=== PATIENT | female | born 1955 | race Caucasian/White ===

== ENCOUNTER → 2021-06-04 10:44 | Outpatient (CLI) | payer MEDICARE, MEDICAID, SELFPAY ==
--- NOTE | ~2021-06-04 | XR_ITS ---
XR knee LT 2V DATE: 06/04/2021 11:16 INDICATION: Medial left knee pain for several months. TECHNIQUE: AP and lateral views COMPARISON: None FINDINGS: No fracture or dislocation or joint effusion. No periosteal reaction or bone destruction. S light periarticular spurring of the patella. Joint spaces are relatively preserved. No radiopaque int ra-articular loose body or chondrocalcinosis. IMPRESSION: Mild patellofemoral osteoarthritis Reviewed, dictated and finalized at location B.
--- NOTE | ~2021-06-04 | XR_ITS ---
XR lumbar spine 2-3V DATE: 06/04/2021 11:16 INDICATION: Right sciatica TECHNIQUE: AP, lateral, coned lateral lumbosacral views COMPARISON: December 18, 2018 lumbar spine FINDINGS: Approximately 12 mm faceted calcified gallstones overlying the right upper quadrant of the abdomen. Diffuse osteopenia. Mild degenerative disc disease at L1-2. Moderate degenerative disc disease at L3-4. There is severe degenerative disc disease at L4-5 and moderately severe degenerative disease at L5-S1 . There is degenerative change at the apophyseal joints with associated minimal grade 1 anterolisthesis at L4-5. No fracture or bone destruction is evident. The lumbar pedicles are intact. The sacroiliac joints are intact. Osteitis pubis. Osteoarthritis at both hip joints, right greater than left. IMPRESSION: Multilevel degenerative disc disease, most pronounced at L4-5 Grade 1 anterolisthesis at L4-5 Bilateral hip osteoarthritis Osteitis pubis Cholelithiasis Reviewed, dictated and finalized at location B.
== END ==
PROVIDERS: PCP Physician Assistant; Visit Provider Physician Assistant
DX: M54.41 Lumbago with sciatica, right side (principal); M54.42 Lumbago with sciatica, left side; K80.20 Calculus of gallbladder without cholecystitis without obstruction; M16.0 Bilateral primary osteoarthritis of hip; M51.36 Other intervertebral disc degeneration, lumbar region
CPT/HCPCS: 72100; 73560

== ENCOUNTER → 2023-01-18 12:59 | Outpatient (CLI) | payer MEDICARE, MEDICAID, SELFPAY ==
--- NOTE | ~2023-01-18 | XR_ITS ---
Left ankle Technique: AP, oblique, and lateral views were obtained. Clinical History: Swelling Findings: No acute fracture or dislocation is seen. Osseous alignment is anatomic. Ankle mortise and other visualized joint spaces are preserved. Soft tissues are otherwise unremarkable. Impression: Unremarkable left ankle. Reviewed, dictated and finalized at location . Impression: Unremarkable left ankle.
--- NOTE | ~2023-01-18 | US_ITS ---
EXAMINATION: US soft tissue groin RT DATE: 01/18/2023 13:44 INDICATION: Right inguinal hernia TECHNIQUE: Multiple grayscale and Doppler ultrasound images of the region of concern at the right jasmeet in were obtained. COMPARISON: None FINDINGS: Short segment of peristalsing bowel is seen extending into a right inguinal hernia. The hernia sac me asures approximately 4.6 x 2.8 x 1.5 cm. The orifice of the hernia measures approximately 2.1 x 2.0 c m. IMPRESSION: 1. Small right inguinal hernia containing short segment of peristalsing bowel. Reviewed, dictated and finalized at location A.
--- NOTE | ~2023-01-18 | XR_ITS ---
Right Shoulder Technique: AP and scapular Y views were obtained. Clinical History: Pain Findings: No fracture or dislocation is seen. Osseous alignment is anatomic. Small inferomedial humer al head osteophyte present. There is mild degenerative change of the AC joint. Numerous intra-articul ar loose bodies are present in the glenohumeral joint, largest measuring 1 cm in diameter. Impression: Numerous intra-articular loose bodies at the right glenohumeral joint, consistent with synovial osteo chondromatosis. Minimal degenerative change of the before meals and glenohumeral joints. Reviewed, dictated and finalized at location . Impression: Numerous intra-articular loose bodies at the right glenohumeral joint, consiste nt with synovial osteochondromatosis. Minimal degenerative change of the before meals and glenohumeral joints.
== END ==
PROVIDERS: PCP Nurse Practitioner Family; Visit Provider Nurse Practitioner Family
DX: M25.511 Pain in right shoulder (principal); M79.89 Other specified soft tissue disorders; K40.90 Unilateral inguinal hernia, without obstruction or gangrene, not specified as recurrent
CPT/HCPCS: 73030; 73610; 76882

== ENCOUNTER 2023-06-14 13:24 | Outpatient (CLI) | payer MEDICARE, MEDICAID, SELFPAY ==
--- NOTE | ~2023-06-14 | PE_ITS ---
EXAMINATION: PET skull to mid thigh DATE: 06/14/2023 15:40 INDICATION: Nonspecific abnormal finding of lung field TECHNIQUE: Blood glucose level was 112 mg/dL. 10.394 mCi of 18-fluorodeoxyglucose (18-FDG) was admini stered i.v. Low dose computed tomography (CT) images were acquired from the base of the brain to the proximal thighs for attenuation correction and anatomic localization. Positron emission tomography (P ET) images were acquired in the same distribution beginning 62 minutes after injection. Images includ ing fused PET/CT images were reconstructed in axial, coronal, and sagittal planes. Automated exposure control technique was employed. The dose-length product was 546.16mGy-cm. COMPARISON: None FINDINGS: Head/neck: There is symmetric increased activity in the oral cavity, palatine tonsils, lingual tonsils, laryngea l muscles and ocular muscles without CT correlate, likely physiologic. No pathologically enlarged cer vical lymphadenopathy or suspicious foci of increased FDG uptake in the visualized head or neck. Chest: Enlarged and prominently FDG avid mediastinal lymphadenopathy. This includes a 3.5 x 3.5 cm mass at t he AP window with maximal SUV of 15.7 and a couple smaller prevascular lymph nodes including a 10 mm lymph node situated between the origins of the left subclavian and left common carotid arteries with maximal SUV of 12.4. Mild discoid atelectasis at the right lung base. No suspicious pulmonary nodules or abnormally FDG avid pulmonary lesions. No pleural effusion. Mild cardiomegaly. No pericardial eff usion. Small sliding-type hiatal hernia. Abdomen/pelvis/proximal thighs: Physiologic renal accumulation and excretion of FDG activity in the kidneys, bladder and along portio ns of ureters. Normal degree and heterogenous pattern of increased uptake throughout the liver withou t radiologic correlate or dominant FDG avid lesion. Calcified gallstone in the otherwise normal-appea ring gallbladder. The gallbladder, pancreas, spleen and bilateral adrenal glands are normal. Mild upt ronald scattered throughout the bowels without radiologic correlate, also likely physiologic. Nonobstruc dale loop of small bowel extends into a right-sided spigelian hernia. Uterus and adnexa are unremarkab le. 9 x 6 mm FDG avid soft tissue density nodule in the subcutaneous fat 4 similar caudal to the umbi licus with maximal SUV of 5.4. No other abnormal foci of increased FDG uptake or pathologically enlar ged lymphadenopathy in the abdomen, pelvis or proximal thighs. Musculoskeletal: Partially visualized left frontal craniectomy. Severe lower cervical spondylosis. Mild synovial uptak e associated with the right sternoclavicular joint where there is moderate osteoarthritis. Additional synovial uptake at multiple loose osteochondral bodies at the recess of the bilateral glenohumeral j oints. No suspicious lytic, blastic or FDG avid bone lesions. IMPRESSION: 1. Enlarged and FDG avid mediastinal lymph nodes concerning for either lymphoma or metastatic disease although no other primary malignancy is identified. 2. Indeterminate infraumbilical 9 x 6 mm subcutaneous soft tissue nodule with mild associated FDG upt ronald also raising some suspicion for either lymphoma or metastatic lymph node. Although small this les ion would be amenable for percutaneous ultrasound-guided biopsy. 3. Segment of nonobstructed small bowel extending into a right anterior pelvic spigelian hernia. 4. Cholelithiasis. Reviewed, dictated and finalized at location A. IMPRESSION: 1. Enlarged and FDG avid mediastinal lymph nodes concerning for either lymphoma or metastatic disease although no other primary malignancy is identified. 2. Indeterminate infraumbilical 9 x 6 mm subcutaneous soft tissue nodule with m ild associated FDG
[2023-06-14 13:59] LABS: Glucose Point of Care 112 mg/dl (65-105)
== END 2023-06-14 13:25 | disposition home or self-care (01) ==
LOC: ANHIMG 13:28
PROVIDERS: PCP Nurse Practitioner Family; Visit Provider Nurse Practitioner Family
DX: R91.8 Other nonspecific abnormal finding of lung field (principal); K80.20 Calculus of gallbladder without cholecystitis without obstruction
CPT/HCPCS: 78815; A9552

== ENCOUNTER 2024-03-02 14:41 | HOS | payer OTHER, MEDICARE, MEDICAID, SELFPAY ==
[2024-03-02 14:51] VITALS: BP 148/85; PULSE 92; RESP 12; TEMP 37.1; O2SAT 96
[2024-03-02 15:13] VITALS: PULSE 84; RESP 16
[2024-03-02] MEDS: MORPHINE SULFATE INJ (*CRX) 50 MG in SODIUM CHLORIDE 0.9% IV 95 ML IV CONT (15:13)
[2024-03-02 16:01] VITALS: BMI 12.3
[2024-03-02] MEDS: PHENobarbitaL sodium (*CRX) 130 MG/ML VIAL 60 MG IV PUSH ×2 (16:24→21:56)
[2024-03-02] MEDS: LORazepam INJ (*CRX) 2 MG/ML VIAL 1 MG IV PUSH ×2 (19:14→22:37)
[2024-03-02] MEDS: PROCHLORPERAZINE EDISYLATE 10 MG/2 ML VIAL IV PUSH (19:21)
[2024-03-02 20:00] VITALS: BP 138/76; PULSE 94; RESP 13; TEMP 36.7; O2SAT 95
[2024-03-02] MEDS: MORPHINE SULFATE (*CRX) 4 MG/ML INJ IV PUSH (22:07)
--- NOTE | 2024-03-02 22:19 | PC.NURSE ---
Patient noted to be moaning and extremely restless. PRN's not effective at this time. Spoke with Dr. Velasquez at this time. New order received to increase morphine drip to 3mg/hr and start Ativan IVP 1mg Q8H scheduled and cont with PRN doses as needed.
[2024-03-02 22:37] VITALS: PULSE 74; RESP 18
[2024-03-02] MEDS: MORPHINE SULFATE INJ (*CRX) 50 MG in SODIUM CHLORIDE 0.9% IV 95 ML 6 MG IV CONT (22:37)
[2024-03-03] MEDS: LORazepam INJ (*CRX) 2 MG/ML VIAL 1 MG IV PUSH ×3 (05:03→21:04)
[2024-03-03] MEDS: PHENobarbitaL sodium (*CRX) 130 MG/ML VIAL 60 MG IV PUSH ×4 (05:03→21:04)
--- NOTE | 2024-03-03 07:31 | PM.IMHP ---
H&P: HPI History of Present Illness Date/Time: 03/03/24 07:31 Chief Complaint: Uncontrolled restlessness Narrative: 68-year-old female on service for lung cancer for which she exhausted all treatment options and wished no further therapy was experiencing escalating vertigo and nausea vomiting during the past week. This improved however she became very restless. She was having discomfort restlessness sleeplessness. Her primary caregiver, daughter, was exhausted and unable to continue giving care at home. Oral and rectal medications including rectal Compazine and oral Ativan, morphine, dexamethasone, and Haldol had failed to control her symptoms. She was admitted for control of symptoms related to terminal restlessness. Review of Systems Review of Systems: ROS unobtainable: Yes unobtainable due to medical condition PMFSH Past Medical History Medical History (Updated 03/03/24 @ 07:34 by Pritesh Velasquez MD) Lung cancer Vertigo Family History Family History (Updated 03/03/24 @ 07:33 by Pritesh Velasquez MD) Father No problems noted. Mother No problems noted. Social History Social History (Updated 03/03/24 @ 07:33 by Pritesh Velasquez MD) Social History: Retired. Lives with Daughter. DNR. Smoking status: Former smoker Smoking end date: 10/31/08 Alcohol intake: former Substance use: never Spiritual care concerns: No Meds Home Medications and Allergies Home Medications Medication Instructions Recorded Confirmed Type No Home Medications 03/02/24 03/02/24 History Allergies Allergy/AdvReac Type Severity Reaction Status Date / Time codeine Allergy Unknown Unknown Verified 03/02/24 18:05 Penicillins Allergy Unknown Unknown Verified 03/02/24 18:05 Vital Signs Vital Signs - 24 hr 03/02/24 14:51 03/02/24 15:13 03/02/24 16:40 Temperature 98.8 F Pulse Rate 92 84 Respiratory Rate 12 16 Blood Pressure 148/85 H Pulse Oximetry 96 Oxygen Delivery Room Air 03/02/24 20:00 03/02/24 22:37 03/02/24 22:37 Temperature 98.1 F Pulse Rate 94 74 74 Respiratory Rate 13 18 18 Blood Pressure 138/76 Pulse Oximetry 95 Oxygen Delivery 03/02/24 20:00 Temperature Pulse Rate Respiratory Rate Blood Pressure Pulse Oximetry 95 Oxygen Delivery Room Air Exam Narrative: Of early female lying comfortably in hospital bed sleeping soundly mouth breathing. Oral mucosa pink and dry. Neck without JVD. Chest with increased AP D and coarse breath sounds bilaterally. Heart normal S1 and S2 with regular rate and no audible murmur or gallop. Extremities without edema. Abdomen soft with hypoactive bowel sounds and no palpable mass. Musculoskeletal without gross deformity to visual inspection. Neurologic cranial nerves symmetric to visual inspection. Psychiatric unresponsive to verbal or tactile stimuli. Assessment and Plan Assessment and plan (1) Palliative care encounter: Code(s): Z51.5 - Encounter for palliative care Status: Acute Assessment and Plan: Meets inpatient hospice criteria due to requiring continuous IV morphine for analgesia and scheduled IV phenobarbital for palliative sedation PRN palliative regimen ordered (2) Lung cancer: Code(s): C34.90 - Malignant neoplasm of unspecified part of unspecified bronchus or lung Status: Acute (3) Vertigo: Code(s): R42 - Dizziness and giddiness Status: Acute
[2024-03-03 07:53] VITALS: BP 126/87; PULSE 88; RESP 12; TEMP 36.2; O2SAT 89
[2024-03-03 09:32] VITALS: PULSE 84; RESP 10; RESP 16
[2024-03-03] MEDS: MORPHINE SULFATE INJ (*CRX) 50 MG in SODIUM CHLORIDE 0.9% IV 95 ML 6 MG IV CONT ×2 (09:32→22:29)
[2024-03-03 20:00] VITALS: BP 114/84; PULSE 94; RESP 8; TEMP 36.2; O2SAT 94
[2024-03-03] MEDS: SODIUM CHLORIDE 0.9% INJ 10 ML (21:06)
[2024-03-03 22:29] VITALS: PULSE 59; RESP 8
[2024-03-04] MEDS: PHENobarbitaL sodium (*CRX) 130 MG/ML VIAL 60 MG IV PUSH ×4 (04:57→21:19)
[2024-03-04] MEDS: LORazepam INJ (*CRX) 2 MG/ML VIAL 1 MG IV PUSH ×3 (05:00→21:16)
[2024-03-04 08:00] VITALS: BP 114/73; PULSE 98; RESP 16; TEMP 35.7; O2SAT 91
--- NOTE | 2024-03-04 11:16 | PM.IMPN ---
Progress Note: A&P Assessment and Plan (1) Palliative care encounter: Code(s): Z51.5 - Encounter for palliative care Status: Acute Assessment and Plan: Meets inpatient hospice criteria due to requiring continuous IV morphine for analgesia and scheduled IV phenobarbital for palliative sedation PRN palliative regimen ordered 03/04/24 discussed care and prognosis with son and daughter at bedside (2) Lung cancer: Code(s): C34.90 - Malignant neoplasm of unspecified part of unspecified bronchus or lung Status: Acute (3) Vertigo: Code(s): R42 - Dizziness and giddiness Status: Acute Subjective Date/time seen: 03/04/24 11:16 Interval history: Remained comfortable overnight. Review of Systems Review of Systems: ROS unobtainable: Yes unobtainable due to medical condition Exam Narrative: Of early female lying comfortably in hospital bed sleeping soundly mouth breathing. Oral mucosa pink and dry. Neck without JVD. Chest with increased AP D and coarse breath sounds bilaterally. Heart normal S1 and S2 with regular rate and no audible murmur or gallop. Extremities without edema. Abdomen soft with hypoactive bowel sounds and no palpable mass. Musculoskeletal without gross deformity to visual inspection. Neurologic cranial nerves symmetric to visual inspection. Psychiatric unresponsive to verbal or tactile stimuli. Objective Data Vital Signs Vital Signs: Vital Signs - 24 hr 03/03/24 20:00 03/03/24 20:00 03/03/24 22:29 Temperature 97.1 F L Pulse Rate 94 59 L Respiratory Rate 8 L 8 L Blood Pressure 114/84 Pulse Oximetry 94 Oxygen Delivery Room Air 03/03/24 22:29 Temperature Pulse Rate 59 L Respiratory Rate 8 L Blood Pressure Pulse Oximetry Oxygen Delivery Intake/Output Intake/Output: Intake & Output 03/01/24 03/02/24 03/03/24 03/04/24 23:59 23:59 23:59 23:59 Intake Total 29.6 165.5 Balance 29.6 165.5 Meds/Results Medications: Active Medications Generic Name Dose Route Start Last Admin Trade Name Freq PRN Reason Stop Dose Admin Artificial Tears 0 drop 03/02/24 14:55 Artificial Tears Ophth Soln 15 Ml Bottle EACH EYE Q12H PRN Dry Eye(s) Bisacodyl 10 mg 03/02/24 14:55 Bisacodyl 10 Mg Suppository RECTAL DAILY PRN Constipation Glycopyrrolate 0.1 mg 03/02/24 14:55 Glycopyrrolate Inj (*Sp) 0.2 Mg/Ml Vial IV PUSH Q4H PRN secretions Morphine Sulfate 50 mg/ Sodium 100 mls @ 6 mls/hr 03/02/24 14:55 03/03/24 22:29 Chloride IV CONT 3 mg/hr .[id number] DWAYNE 6 mls/hr Administration 3 MG/HR Lorazepam 1 mg 03/02/24 14:55 03/02/24 19:14 Lorazepam Inj (*Crx) 2 Mg/Ml Vial IV PUSH 1 mg Q4H PRN Administration ANXIETY/RESTLESSNESS Lorazepam 1 mg 03/02/24 22:30 03/04/24 05:00 Lorazepam Inj (*Crx) 2 Mg/Ml Vial IV PUSH 1 mg Q8HR DWAYNE Administration Morphine Sulfate 4 mg 03/02/24 14:55 03/02/24 22:07 Morphine Sulfate (*Crx) 4 Mg/Ml Inj IV PUSH 4 mg Q2H PRN Administration ANXIETY/RESTLESSNESS/SOB Phenobarbital Sodium 60 mg 03/02/24 16:00 03/04/24 09:49 Phenobarbital Sodium (*Crx) 130 Mg/Ml Vial IV PUSH 60 mg Q6H DWAYNE Administration Prochlorperazine Edisylate 10 mg 03/02/24 14:55 03/02/24 19:21 Prochlorperazine Edisylate 10 Mg/2 Ml Vial IV PUSH 10 mg Q6H PRN Administration Nausea And Vomiting Promethazine HCl 12.5 mg 03/02/24 15:31 Promethazine Hcl 25 Mg/Ml Ampul IV PUSH Q4H PRN Dizziness
[2024-03-04 14:19] VITALS: O2SAT 91
[2024-03-04 15:10] VITALS: PULSE 92; RESP 15
[2024-03-04 15:23] VITALS: PULSE 92; RESP 15
[2024-03-04] MEDS: MORPHINE SULFATE INJ (*CRX) 50 MG in SODIUM CHLORIDE 0.9% IV 95 ML 6 MG IV CONT (15:23)
[2024-03-04 20:00] VITALS: BP 113/85; PULSE 59; RESP 16; TEMP 36.3; O2SAT 95
[2024-03-04] MEDS: PROMETHAZINE HCL 25 MG/ML AMPUL 12.5 MG IV PUSH (21:16)
[2024-03-04] MEDS: GLYCOPYRROLATE INJ (*SP) 0.2 MG/ML VIAL 0.1 MG IV PUSH (21:19)
[2024-03-05 04:20] VITALS: PULSE 70; RESP 8
[2024-03-05] MEDS: PHENobarbitaL sodium (*CRX) 130 MG/ML VIAL 60 MG IV PUSH ×2 (04:20→09:25)
[2024-03-05] MEDS: MORPHINE SULFATE INJ (*CRX) 50 MG in SODIUM CHLORIDE 0.9% IV 95 ML 6 MG IV CONT (04:20)
[2024-03-05] MEDS: LORazepam INJ (*CRX) 2 MG/ML VIAL 1 MG IV PUSH (04:20)
[2024-03-05 07:51] VITALS: BP 87/59; PULSE 114; RESP 30; TEMP 35.9; O2SAT 74
[2024-03-05 08:00] VITALS: O2SAT 74
--- NOTE | 2024-03-05 10:14 | PM.DDS ---
Discharge Summary Probable Cause of Probable Cause of : Lung Cancer Summary Hospital Course: Admitted to inpatient hospice service. Medications titrated to comfort. Mrs. Bryant peacefully.
--- NOTE | 2024-03-05 13:40 | PC.NURSE ---
Patient found without respirations or heart beat at 1340. Family at bedside. at 1340.
== END 2024-03-05 13:40 | disposition expired | DRG 951 ==
PROVIDERS: Admitting Provider Internal Medicine; Visit Provider Internal Medicine
DX: Z51.5 Encounter for palliative care (principal); C34.90 Malignant neoplasm of unspecified part of unspecified bronchus or lung; Z66 Do not resuscitate; R42 Dizziness and giddiness; Z87.891 Personal history of nicotine dependence
CPT/HCPCS: A9270; J0780; J1596; J2060; J2270; J2550; J2560